=== PATIENT | female | born 1985 | race Two or more races ===

== ENCOUNTER 2024-07-25 20:09 | Emergency (ER) | payer OTHER ==
[~2024-07-25] VITALS: Ht 162.6 cm; Wt 65.0 kg
[2024-07-25 20:46] VITALS: BP 118/78; RESP 16; TEMP 98.8; O2SAT 99
[2024-07-25 21:21] VITALS: PULSE 100
== END 2024-07-25 22:10 | disposition home or self-care (01) ==
LOC: ER 20:09 → EDBD 20:09 → ER 22:09
DX: S80.812A Abrasion, left lower leg, initial encounter (principal); S80.811A Abrasion, right lower leg, initial encounter; M62.81 Muscle weakness (generalized); X58.XXXA Exposure to other specified factors, initial encounter; Y93.89 Activity, other specified; Y92.89 Other specified places as the place of occurrence of the external cause; Y99.8 Other external cause status
CPT/HCPCS: 93005